=== PATIENT | female | born 1990 | race Two or more races ===

== ENCOUNTER 2021-09-07 20:40 | Emergency (ER) | payer SELFPAY ==
[~2021-09-07] VITALS: Ht 154.9 cm; Wt 85.7 kg
[2021-09-07 20:53] VITALS: BP 129/86
== END 2021-09-07 22:29 | disposition left against medical advice (07) ==
LOC: ER 20:41
DX: R10.9 Unspecified abdominal pain (principal); R11.2 Nausea with vomiting, unspecified; Z53.21 Procedure and treatment not carried out due to patient leaving prior to being seen by health care provider